=== PATIENT | female | born 1970 | race Caucasian/White ===

== ENCOUNTER → 2017-03-17 | Outpatient (CLI) | payer BC ==
[~2017-03-17] MED LIST: EPP3 IM
--- NOTE | 2017-03-17 14:52 | DIAGNOSTIC IMAGING REPORT ---
RIGHT VENOUS DOPP LOWER EXT UNILAT CLINICAL HISTORY: 46 years-old Female presenting with R LEG SWELLING,TENDERNESS, R/O DVT Right. TECHNIQUE: Real-time grayscale and color and spectral Doppler ultrasound imaging of the veins of the right lower extremity was performed. Compression and augmentation were also utilized. COMPARISON: None. FINDINGS: Right: Common femoral vein: Patent. Femoral vein: Patent. Greater saphenous vein: Patent. Popliteal vein: Patent. Calf veins: Patent. Other: Prominent benign-appearing right inguinal nodes, likely reactive. IMPRESSION: No evidence of deep venous thrombosis. Electronically signed by: Delvin Garcia M.D. 03/17/2017 2:50 PM Dictated Date/Time: 03/17/2017 2:50 PM
== END | disposition home or self-care (01) ==
LOC: C.ULTR 13:52
PROVIDERS: ATTEND Family Medicine
DX: I80.00 Phlebitis and thrombophlebitis of superficial vessels of unspecified lower extremity (principal)